=== PATIENT | male | born 1955 | race Caucasian/White ===

== ENCOUNTER 2021-07-31 17:50 | Inpatient (IN) | payer MEDICARE, OTHER, SELFPAY ==
--- NOTE | ~2021-07-31 | XR_ITS ---
EXAMINATION: CHEST 2 VIEWS CLINICAL INFORMATION: Stroke protocol . COMPARISON: No recent pertinent prior studies are available for comparison. TECHNIQUE: PA and lateral views of the chest obtained. FINDINGS: The lungs are well expanded. Minimal left basilar markings likely due to atelectasis but no superimposed focal infiltrate, effusion, edema, or pneumothorax. Cardiac and mediastinal silhouettes are within normal limits for technique. No acute bony abnormality seen XR/XR chest 2V IMPRESSION: Minimal left basilar markings more likely due to atelectasis
--- NOTE | ~2021-07-31 | US_ITS ---
EXAMINATION: US EXTRACRANIAL CAROTID DUPLEX, BILATERAL CLINICAL INFORMATION: CVA/left-sided weakness COMPARISON: Previous head CT 07/31/2021 TECHNIQUE: Real-time ultrasound and Doppler techniques (integrating B-mode 2-D vascular images, Doppler spectral analysis and color-flow Doppler imaging) were utilized to interrogate the extracranial carotid arteries, the vertebral arteries and proximal subclavian arteries bilaterally. The degree of stenosis is determined by criteria similar to NASCET. FINDINGS: Right Side: 1. There is mild atherosclerotic plaque seen in the bifurcation/proximal ICA region. 2. The common carotid artery PSV proximally is 79 cm/s and distally 73 cm/s. 3. The proximal internal carotid artery velocities are 59 cm/s systolic and 26 cm/s diastolic. 4. The proximal external carotid artery PSV is 133 cm/s. 5. The vertebral artery shows antegrade flow. 6. The subclavian artery waveforms are normal. Left Side: 1. There is mild atherosclerotic plaque seen in the bifurcation/proximal ICA region. 2. The common carotid artery PSV proximally is 75 cm/s and distally 64 cm/s. 3. The proximal internal carotid artery velocities are 49 cm/s systolic and 19 cm/s diastolic. 4. The proximal external carotid artery PSV is 99 cm/s. 5. The vertebral artery shows flow antegrade flow. 6. The subclavian artery waveforms are normal. There is an arrhythmia. US/US carotid duplex BI IMPRESSION: 1. RIGHT: Minimal atherosclerotic plaque. 0-49% right ICA stenosis. 2. LEFT: Minimal atherosclerotic plaque. 0-49% left ICA stenosis.
--- NOTE | ~2021-07-31 | CT_ITS ---
EXAMINATION: CT HEAD WITHOUT CONTRAST CLINICAL INFORMATION: Left-sided weakness for 12 days COMPARISON: None TECHNIQUE: Contiguous axial imaging was performed from the skull base to vertex without intravenous administration of contrast. This CT examination was performed using dose optimization techniques as appropriate, variously including the following: *Automated exposure control *Adjustment of mA and/or kV according to patient size (this includes techniques or standardized protocols for targeted exams where dose is matched to indication/reason for exam; i.e. extremities or head) *Use of iterative reconstruction technique DLP: 711 mGy-cm FINDINGS: Atherosclerotic calcification of the cavernous carotid arteries. Old lacunar infarcts in the gangliocapsular regions. Also, there appears to be a small, subtle 0.4 cm focus of calcification of the right basal ganglia. The hypoattenuation within white matter of each frontal lobe is compatible with sequela of chronic microangiopathy. Surgical changes from prior right frontal craniotomy, and there is encephalomalacia with postoperative lack of brain tissue of the inferior right frontal lobe deep to the craniotomy site. No acute intracranial hemorrhage is identified. There is no loss of jimenez-white matter differentiation to suggest an acute major vascular territory infarction. Mild volume loss of brain parenchyma with commensurate prominence of ventricles and sulci; no hydrocephalus. The brainstem and cerebellum are unremarkable. The right mastoid air cells are normal. Some of the left mastoid air cells are opacified. The visualized paranasal sinuses are well aerated and without air-fluid levels. The orbits, globes and temporomandibular joints are unremarkable. CT/CT head/brain wo con IMPRESSION: * No evidence of an acute major vascular territory infarction. * There is encephalomalacia of the inferior right frontal lobe deep to the site of prior craniotomy. * Old lacunar infarcts in the gangliocapsular regions, and chronic small vessel ischemic changes of the supratentorial white matter.
--- NOTE | ~2021-07-31 | MR_ITS ---
MR BRAIN WITHOUT AND WITH CONTRAST CLINICAL INFORMATION: CVA. COMPARISON: Head CT 07/31/2021. TECHNIQUE: Multiplanar, multisequence MRI of the brain was obtained before and after the intravenous administration of 10 mL Gadavist. FINDINGS: There is a small acute infarct within the right aviles radiata on image 21 of series 3. No mass effect and no hemorrhagic transformation. There is no pathologic intracranial enhancement. Redemonstrated chronic postoperative changes following right orbitofrontal craniotomy. There is a resection cavity within the inferior right frontal lobe with surrounding nonenhancing T2 signal changes that are nonspecific. There is also chronic hemosiderin staining along the periphery of the resection cavity and there are punctate chronic microhemorrhages within the cerebral hemispheres bilaterally. There is global cerebral volume loss and there are nonspecific confluent T2 signal changes within the bifrontal white matter. A few small foci of bandlike enhancement within the right basal ganglia, likely normal vasculature. There is no hydrocephalus, extra-axial surface collection, or herniation. The major flow voids at the skull base are preserved. There is no acute infarct on diffusion-weighted imaging. There is no intracranial hemorrhage on the gradient recalled echo acquisition. The midline structures are normal. The cerebellar tonsils are normally positioned. The cerebellum and brainstem are normal. The craniocervical junction is normal. Osseous marrow signal intensity is homogenous. The visualized soft tissues are unremarkable. There is a moderate sized left mastoid effusion. MR/MR head/brain wo/w con IMPRESSION: - There is a small acute infarct within the right aviles radiata on image 21 of series 3. No mass effect and no hemorrhagic transformation. - Redemonstrated chronic postoperative changes following right orbitofrontal craniotomy. There is a resection cavity within the inferior right frontal lobe with surrounding nonenhancing T2 signal changes that are nonspecific. There is also chronic hemosiderin staining along the periphery of the resection cavity and there are punctate chronic microhemorrhages within the cerebral hemispheres bilaterally. - A few small foci of bandlike enhancement within the right basal ganglia, likely normal vasculature. - Nonspecific and nonenhancing confluent T2 signal changes within the bifrontal white matter. - There is a moderate sized left mastoid effusion.
[2021-07-31 18:13] VITALS: BP 157/88; PULSE 62; RESP 18; TEMP 37.2; O2SAT 96; BMI 42.3
--- NOTE | 2021-07-31 18:33 | ECG_ITS ---
Test Reason : WEAKNESS Blood Pressure : / mmHG Vent. Rate : 060 BPM Atrial Rate : 202 BPM P-R Int : 000 ms QRS Dur : 078 ms QT Int : 416 ms P-R-T Axes : 000 007 041 degrees QTc Int : 416 ms Atrial fibrillation Abnormal ECG No previous ECGs available Referred By: Hoang Cuevas Electronically Signed By:DAVID MOISE
--- NOTE | 2021-07-31 18:35 | ED.GENADULT ---
HPI - General Adult General Chief complaint: General Medical Stated complaint: L SIDED WEAKNESS X'S WEEKS Time Seen by Provider: 07/31/21 18:20 Source: patient and family History of Present Illness HPI narrative: Patient with history of dementia, AFib on Eliquis, presents with at least 10 days worth of left-sided weakness. Left facial droop, left arm weakness, left leg weakness with difficulty ambulating. No recent changes in medications. No recent traumas or falls. Patient denies pain. Apparently they tried to get in to Urgent Care to be seen but were unable. Is a history of a stroke in the past which resulted in difficulty speaking which resolved. He never had focal weakness like this before. He states he may have missed a dose or 2 of his Eliquis recently by accident but no intentional changes in medication. He denies headache. No changes in vision. His states that his speech is difficult to understand. Occasional difficulty finding words. Related Data Allergies Allergy/AdvReac Type Severity Reaction Status Date / Time No Known Allergies Allergy Unverified 07/31/21 18:32 Review of Systems Constitutional: Comments: No fevers or chills Eyes: Comments: No vision changes Cardiovascular: Comments: No chest pain Respiratory: Comments: No difficulty breathing Gastrointestinal: Comments: No nausea vomiting diarrhea Musculoskeletal: Comments: Some chronic knee pain but no of acute or new pain Neurologic: Comments: Left facial droop, dysarthria, left arm weakness, left leg weakness PMFSH Social History Social History Advance Directives: No Advance Directives Information Provided: No Physical Exam Vital Signs: Vital Signs: Last Vital Signs Temp 99.0 F 07/31/21 18:13 Pulse 62 07/31/21 18:13 Resp 18 07/31/21 18:13 BP 157/88 H 07/31/21 18:13 Pulse Ox 96 07/31/21 18:13 Body Mass Index 42.3 Const: Other: No acute distress. Alert and oriented HENMT: Other: Normocephalic atraumatic Eyes: Other: Extraocular muscles intact Resp: Other: Clear and equal bilaterally Cardio: Other: Irregularly irregular with a rate in the 50s. No obvious murmurs rubs or gallops GI: Other: Nontender Skin: Other: Warm pink and dry Neuro: Other: Left facial droop Left arm weakness with a pronator drift. Left knit tubing dyer strength decreased 3/5. Left leg weakness. Able to lift against gravity but not maintain NIH Stroke Scale Internal: Initial- Upon Arrival Time: 18:39 Level of Consciousness: Alert Level of Consciousness Questions: Answers both questions correctly Level of Consciousness Commands: Performs both tasks correctly Best Gaze: Normal Visual: No visual loss Facial Palsy: Partial paralysis Motor Arm (Right): No drift Motor Arm (Left): Drift Motor Leg (Right): No drift Motor Leg (Left): Drift Limb Ataxia: Absent Sensory: Normal Best Language: No aphasia Dysarthia: Mild to moderate dysarthria Extinction and Inattention: No abnormality Score: 5 Course Course Course Narrative: Patient with probable stroke. Intracranial mass possible as he has a remote history of a metastatic brain lesion with radiation treatment. Intracranial hemorrhage is also possible as he is on Eliquis for atrial fibrillation. NIH score is 5. He is not a candidate for thrombolysis or endovascular given time line of at least 11 days. Other contraindication for thrombolysis is Eliquis Medical Decision Making Lab Data Result diagrams: 07/31/21 20:10 07/31/21 20:10 Labs: Lab Results 07/31/21 07/31/21 07/31/21 Range/Units 19:42 20:10 20:10 WBC 9.3 (4.8-10.8) X10*3/uL RBC 4.81 (4.60-5.80) X10*6/uL Hgb 15.4 (14.0-18.0) g/dl Hct 41.8 L (42-52) % MCV 86.9 (80-98) fL MCH 32.0 (27.0-33.0) pg MCHC 36.8 H (31.0-36.0) g/dl RDW 11.9 (11.0-16.0) % Plt Count 237 (160-400) X10*3/uL MPV 8.6 L (9.4-12.4) fL Immature Gran % (Auto) 0.6 H (0.0-0.4) % Neut % (Auto) 66.1 (45-73) % Lymph % (Auto) 23.3 (20-40) % [place] % (Auto) 9.1 (2-11) % Eos % (Auto) 0.6 (0-4) % Baso % (Auto) 0.3 (0-2) % Lymph # (Auto) 2.2 (1.2-4.9) X10*3/uL [place] # (Auto) 0.8 (0.1-1.2) X10*3/uL Eos # (Auto) 0.1 (0.0-0.4) X10*3/uL Baso # (Auto) 0.0 (0.0-0.2) X10*3/uL Abs Immat Gran (auto) 0.06 H (0.00-0.03) X10*3/uL Absolute Neuts (auto) 6.1 (2.0-8.3) X10*3/uL Absolute Nucleated RBC 0.000 (0.0-0.012) X10*3/uL Nucleated RBC % (auto) 0.0 (0.0-0.2) /100WBC PT (9.9-13.0) SEC INR (0.9-1.1) Sodium 133 L (135-145) mmol/L Potassium 4.0 (3.3-5.1) mmol/L Chloride 97 (96-108) mmol/L Carbon Dioxide 26 (22-29) mmol/L Anion Gap 14 (12-20) BUN 12 (9-16) mg/dL Creatinine 0.85 (0.5-1.4) mg/dL Estim Creat Clear Calc 105.7 Estimated GFR > 60 Random Glucose 106 (60-115) mg/dL Calcium 9.5 (8.4-10.2) mg/dL Total Bilirubin 1.0 (0.0-1.0) mg/dL AST 16 (5-37) U/L ALT 19 (0-40) U/L Alkaline Phosphatase 86 (39-117) U/L Total Protein 7.4 (6.5-8.0) g/dL Albumin 4.6 (3.5-5.0) g/dL COVID-19 (SILVINO) Negative (Negative) COVID-19 Clin Com See Note 07/31/21 Range/Units 20:10 WBC (4.8-10.8) X10*3/uL RBC (4.60-5.80) X10*6/uL Hgb (14.0-18.0) g/dl Hct (42-52) % MCV (80-98) fL MCH (27.0-33.0) pg MCHC (31.0-36.0) g/dl RDW (11.0-16.0) % Plt Count (160-400) X10*3/uL MPV (9.4-12.4) fL Immature Gran % (Auto) (0.0-0.4) % Neut % (Auto) (45-73) % Lymph % (Auto) (20-40) % [place] % (Auto) (2-11) % Eos % (Auto) (0-4) % Baso % (Auto) (0-2) % Lymph # (Auto) (1.2-4.9) X10*3/uL [place] # (Auto) (0.1-1.2) X10*3/uL Eos # (Auto) (0.0-0.4) X10*3/uL Baso # (Auto) (0.0-0.2) X10*3/uL Abs Immat Gran (auto) (0.00-0.03) X10*3/uL Absolute Neuts (auto) (2.0-8.3) X10*3/uL Absolute Nucleated RBC (0.0-0.012) X10*3/uL Nucleated RBC % (auto) (0.0-0.2) /100WBC PT 13.4 H (9.9-13.0) SEC INR 1.2 H (0.9-1.1) Sodium (135-145) mmol/L Potassium (3.3-5.1) mmol/L Chloride (96-108) mmol/L Carbon Dioxide (22-29) mmol/L Anion Gap (12-20) BUN (9-16) mg/dL Creatinine (0.5-1.4) mg/dL Estim Creat Clear Calc Estimated GFR Random Glucose (60-115) mg/dL Calcium (8.4-10.2) mg/dL Total Bilirubin (0.0-1.0) mg/dL AST (5-37) U/L ALT (0-40) U/L Alkaline Phosphatase (39-117) U/L Total Protein (6.5-8.0) g/dL Albumin (3.5-5.0) g/dL COVID-19 (SILVINO) (Negative) COVID-19 Clin Com Critical Care Time Critical Care Time Critical Care Time: Yes Total Critical Care Time: 60 Attestation: Stroke with thrombolytics consideration no Discharge Plan Discharge Patient Disposition: Admitted As Inpatient
[2021-07-31 20:00] VITALS: PULSE 84; RESP 18; O2SAT 100
[2021-07-31 20:15] LABS: Basophils Percent Auto 0.3 % (0-2); Eosinophils Absolute Auto 0.1 X10*3/uL (0.0-0.4); Eosinophils Percent Auto 0.6 % (0-4); Hematocrit 41.8 % (42-52); Hemoglobin 15.4 g/dl (14.0-18.0); Imm Gran Abs Auto 0.06 X10*3/uL (0.00-0.03); Imm Gran Pct Auto 0.6 % (0.0-0.4); Lymphocytes Absolute Auto 2.2 X10*3/uL (1.2-4.9); Lymphocytes Percent Auto 23.3 % (20-40); MANUAL DIFF FLAG NO; Mean Corpuscular HGB Conc 36.8 g/dl (31.0-36.0); Mean Corpuscular Volume 86.9 fL (80-98); Mean Platelet Volume 8.6 fL (9.4-12.4); Monocytes Absolute Auto 0.8 X10*3/uL (0.1-1.2); Monocytes Percent Auto 9.1 % (2-11); Neutrophils Absolute Auto 6.1 X10*3/uL (2.0-8.3); Neutrophils Percent Auto 66.1 % (45-73); Platelet Count 237 X10*3/uL (160-400); Red Blood Count 4.81 X10*6/uL (4.60-5.80); Red Cell Distribution Width 11.9 % (11.0-16.0); White Blood Count 9.3 X10*3/uL (4.8-10.8)
[2021-07-31 20:19] LABS: COVID-19 Test Negative (Negative)
[2021-07-31 20:21] LABS: INTERNATIONAL NORM RATIO 1.2 (0.9-1.1); Prothrombin Time 13.4 SEC (9.9-13.0)
[2021-07-31 20:34] LABS: Alanine Aminotransferase 19 U/L (0-40); Albumin Level 4.6 g/dL (3.5-5.0); Alkaline Phosphatase 86 U/L (39-117); Anion Gap 14 (12-20); Aspartate Amino Transferase 16 U/L (5-37); Blood Urea Nitrogen 12 mg/dL (9-16); Calcium 9.5 mg/dL (8.4-10.2); Carbon Dioxide 26 mmol/L (22-29); Chloride 97 mmol/L (96-108); Creatinine Clr Calc Pharmacy 105.7; Estimated Glomerular Filt Rate > 60; Glucose Random 106 mg/dL (60-115); Sodium 133 mmol/L (135-145); Total Protein 7.4 g/dL (6.5-8.0)
--- NOTE | 2021-07-31 22:17 | PM.IMHP ---
History of Present Illness Date of Service: 07/31/21 Chief Complaint: left arm weakness 66-year-old male with past medical history of HTN, AFib on Eliquis, hyperlipidemia, hypothyroidism who presents the hospital with complaints of left-sided arm weakness. Patient reports that this occurred about a week ago, his also noticed slurred speech and droopiness of the face, when asked the patient he denied left leg weakness but apparently his reported left leg weakness with difficulty ambulating. Patient denies any chest pain, no shortness of breath, no cough, he denies any headache, no change in vision, no abdominal pain nausea vomiting, diarrhea constipation, no urinary symptoms and no lower extremity edema. All other review of systems negative except as mentioned On arrival to the ED patient hemodynamically stable with no significant abnormal vitals Labs are significant for WBC count of 9.3, PT of 13.5, INR of 1.2, sodium of 133, otherwise unremarkable. Of an acute major vascular territory infarction, there is encephalomalacia of the inferior right frontal lobe deep to the site of prior craniotomy, old lacunar infarcts in the gangliacapsular region and chronic small vessel ischemic changes of the supratentorial white matter Patient will be admitted for further evaluation Review of Systems Review of Systems: Yes all other systems are reviewed and are negative [facility] Medical History (Updated 08/01/21 @ 06:49 by Vin Begum MD) Afib History of stroke Hyperlipidemia Hypertension Hypothyroidism Family History Father Hypertension Pertinent family history: History of hypertension father Surgical History History of craniotomy Social History Household Members: Family Housing: House Do you presently have visiting nurse or other home services: No Unable to assess alcohol history related to: Unknown Alcohol intake: never Patient Tobacco Use Status: Tobacco use Unknown Smoked in Last 30 Days: No Use of substances other than those prescribed or required for medical reasons: Unknown Advance Directives: No Advance Directives Information Provided: No Do you have thoughts of harming others: None Do you have a plan to hurt others: No Plan Recently lost weight without trying: Unsure Poor oral hygiene: No Meds Allergies Allergy/AdvReac Type Severity Reaction Status Date / Time No Known Allergies Allergy Unverified 07/31/21 18:32 Home Medications Medication Instructions Recorded Confirmed Last Taken Type amlodipine 5 mg tablet 1 tab PO DAILY 07/31/21 07/31/21 Unknown History apixaban 5 mg tablet (Eliquis) 1 tab PO BID 07/31/21 07/31/21 Unknown History atorvastatin 20 mg tablet 1 tab PO DAILY 07/31/21 07/31/21 Unknown History desonide 0.05 % topical cream 1 appl TOPICAL DAILY 07/31/21 07/31/21 Unknown History donepezil 5 mg tablet 1 tab PO DAILY 07/31/21 07/31/21 Unknown History hydroxyzine HCl 25 mg tablet 2 tab PO BEDTIME PRN 07/31/21 07/31/21 Unknown History ketoconazole 2 % topical cream 1 appl TOPICAL BID 07/31/21 07/31/21 Unknown History levothyroxine 100 mcg tablet 1 tab PO DAILY 07/31/21 07/31/21 Unknown History travoprost 0.004 % eye drops 1 drp OPHTHALMIC (EYE) QPM 07/31/21 07/31/21 Unknown History Physical Exam Vital Signs and Narrative: Vital Signs: Last Vital Signs Temp 99.0 F 07/31/21 18:13 Pulse 84 07/31/21 20:00 Resp 18 07/31/21 20:00 BP 157/88 H 07/31/21 18:13 Pulse Ox 100 07/31/21 20:00 Body Mass Index 42.3 Const: General: cooperative and no acute distress Orientation/consciousness: patient oriented x3 Eyes: General: appearance normal, both eyes and all related structures Pupils: Equal, round and reactive pupils present Resp: Effort & Inspection: normal respiratory effort Auscultation: clear to auscultation bilaterally Cardio: Rate: regular rate Rhythm: regular rhythm GI: Palpation (GI): Soft to palpation Auscultation: normal bowel sounds Skin: General skin exam: no rashes or lesions noted Neuro: Other: There is 4/5 strength in the left upper left extremity, 5/5 strength in all other extremities, no slurred speech noted, no facial droop, no neurological deficits otherwise General: patient oriented x3 Cranial nerves: Yes Equal, round and reactive pupils present Cognition (Neuro): normal cognition Extrem: General: Yes normal to inspection and Yes no pedal edema Results Labs CBC and Chem 7: 07/31/21 20:10 07/31/21 20:10 Labs: Laboratory Results - last 24 hr 07/31/21 07/31/21 07/31/21 19:42 20:10 20:10 MCV 86.9 MCH 32.0 MCHC 36.8 H RDW 11.9 Plt Count 237 MPV 8.6 L Immature Gran % (Auto) 0.6 H Neut % (Auto) 66.1 Lymph % (Auto) 23.3 [place] % (Auto) 9.1 Eos % (Auto) 0.6 Baso % (Auto) 0.3 Lymph # (Auto) 2.2 [place] # (Auto) 0.8 Eos # (Auto) 0.1 Baso # (Auto) 0.0 Abs Immat Gran (auto) 0.06 H Absolute Neuts (auto) 6.1 Absolute Nucleated RBC 0.000 Nucleated RBC % (auto) 0.0 PT INR Anion Gap 14 Estim Creat Clear Calc 105.7 Estimated GFR > 60 Random Glucose 106 Calcium 9.5 Total Bilirubin 1.0 AST 16 ALT 19 Alkaline Phosphatase 86 Total Protein 7.4 Albumin 4.6 COVID-19 (SILVINO) Negative COVID-19 Clin Com See Note 07/31/21 20:10 MCV MCH MCHC RDW Plt Count MPV Immature Gran % (Auto) Neut % (Auto) Lymph % (Auto) [place] % (Auto) Eos % (Auto) Baso % (Auto) Lymph # (Auto) [place] # (Auto) Eos # (Auto) Baso # (Auto) Abs Immat Gran (auto) Absolute Neuts (auto) Absolute Nucleated RBC Nucleated RBC % (auto) PT 13.4 H INR 1.2 H Anion Gap Estim Creat Clear Calc Estimated GFR Random Glucose Calcium Total Bilirubin AST ALT Alkaline Phosphatase Total Protein Albumin COVID-19 (SILVINO) COVID-19 Clin Com ECG Interpretation: atrial fibrillation Imaging Radiologist's Impressions: Impressions Head CT 07/31/21 18:32 IMPRESSION: * No evidence of an acute major vascular territory infarction. * There is encephalomalacia of the inferior right frontal lobe deep to the site of prior craniotomy. * Old lacunar infarcts in the gangliocapsular regions, and chronic small vessel ischemic changes of the supratentorial white matter. Chest X-Ray 07/31/21 18:33 IMPRESSION: Minimal left basilar markings more likely due to atelectasis Assessment and Plan (1) CVA (cerebral vascular accident): Status: Acute 66-year-old male with past medical history of hypertension, hypothyroidism, hyperlipidemia presents to the hospital with left-sided weakness being admitted for evaluation of CVA # CVA - has no evidence of acute/subacute stroke on CT of the head - there is evidence of old infarct as mentioned above - patient already on high dose of statin, as well as Eliquis - will consult neurology - will hold off on MRI until Neurology evaluates patient # hypertension - stable - continue home medications # hyperlipidemia - continue statin # AFib - continue liquids # hypothyroidism - continue levothyroxine DVT prophylaxis: Eliquis Quality Stroke Does the patient have a stroke diagnosis?: No VTE Prior VTE?: No VTE Risk Level:: Medical - moderate - high VTE Device Contraindication: Treatment Not Indicated VTE Drug Contraindication: N/A - Med Ordered
[2021-07-31 22:23] VITALS: BP 153/90; PULSE 64; RESP 18; TEMP 37; O2SAT 100
--- NOTE | 2021-07-31 22:56 | PC.NURSE ---
Hospitalist aware of npo status.
[2021-08-01] VITALS (11 sets, daily range): BP systolic 120–165; BP diastolic 72–95; PULSE 55–90; RESP 16–20; TEMP 36–37.3; O2SAT 92–96
[2021-08-01 07:14] LABS: MANUAL DIFF FLAG NO
[2021-08-01 07:19] LABS: Basophils Percent Auto 0.3 % (0-2); Eosinophils Absolute Auto 0.1 X10*3/uL (0.0-0.4); Eosinophils Percent Auto 0.7 % (0-4); Hematocrit 43.3 % (42-52); Hemoglobin 15.6 g/dl (14.0-18.0); Imm Gran Abs Auto 0.07 X10*3/uL (0.00-0.03); Imm Gran Pct Auto 0.8 % (0.0-0.4); Lymphocytes Percent Auto 22.7 % (20-40); Mean Corpuscular Hemoglobin 31.4 pg (27.0-33.0); Mean Corpuscular Volume 87.1 fL (80-98); Mean Platelet Volume 8.7 fL (9.4-12.4); Monocytes Absolute Auto 0.8 X10*3/uL (0.1-1.2); Monocytes Percent Auto 8.8 % (2-11); Neutrophils Absolute Auto 5.8 X10*3/uL (2.0-8.3); Neutrophils Percent Auto 66.7 % (45-73); Platelet Count 252 X10*3/uL (160-400); Red Blood Count 4.97 X10*6/uL (4.60-5.80); Red Cell Distribution Width 11.9 % (11.0-16.0); White Blood Count 8.7 X10*3/uL (4.8-10.8)
[2021-08-01 07:45] LABS: Anion Gap 14 (12-20); Blood Urea Nitrogen 12 mg/dL (9-16); Calcium 9.1 mg/dL (8.4-10.2); Carbon Dioxide 26 mmol/L (22-29); Chloride 95 mmol/L (96-108); Cholesterol 151 mg/dL; Creatinine Clr Calc Pharmacy 108.2; Estimated Glomerular Filt Rate > 60; Glucose Random 99 mg/dL (60-115); HDL Cholesterol 45 mg/dL; LDL Cholesterol Calculated 91 mg/dl; Potassium 4.1 mmol/L (3.3-5.1); Sodium 131 mmol/L (135-145); Triglycerides 75 mg/dL
--- NOTE | 2021-08-01 12:30 | MHC.SL.SWA ---
Speech Pathologist Impression: Risk of Aspiration Oralpharyngeal Dysphagia Risk of Aspiration Due to: Neurological Condition Dysphasia Diet Status: Upgrade Liquid Consistency and Strategies for Safe Swallow: Liquid Intake Recommendation: Honey Thick Liquid Intake Strategies: Small Sips No Straws Solid Food Consistency: Dietary Recommendations: Regular Additional Modifications to Solid Foods: Recommend REGULAR solids and HONEY THICK liquids with pills WHOLE in PUREE. Patient is able to feed himself, but is recommended assistance with tray set up and supervision to ensure tolerance and aspiration precautions. Recommend strict aspiration precautions. Oral Medication Intake: Whole with Puree Compensatory Strategies and Precautions to be Taken for Safe Swallow: Sitting Upright (90 deg) No Straw Liquids from Cup Liquids from Spoon Small Bites and Sips Alternate Liquids/Solids Rate of Ingestion Change Oral Check Avoid Specific Foods Supervision While Eating and Drinking for Safe Swallow: Total Supervision (1:1) Foods to Avoid: Avoid tough and sticky foods Swallowing Recommended Treatments: Compens. Strategy Educat. Recommendation for Speech: Inpatient Speech Therapy Comment: [employer] will continue to follow. Supervisor Cd Area Clinican/Clinical Fellow: No Supervisory Statement: I have reviewed and agree with the student/clinical fellow's documentation: N/A Speech Language Pathologist: Leatha Banks M.A., CCC-[employer]
[2021-08-01] MEDS: amLODIPine Besylate 5 MG TABLET PO (12:40)
[2021-08-01] MEDS: Donepezil HCl 5 MG TABLET PO (12:40)
[2021-08-01] MEDS: Triamcinolone Acet 0.025 % Cream 15 GM TUBE 1 APPL TOPICAL (12:40)
[2021-08-01] MEDS: Atorvastatin Calcium 20 MG TABLET PO (12:40)
[2021-08-01] MEDS: Apixaban 5 MG TABLET PO ×2 (12:40→20:21)
[2021-08-01] MEDS: Clotrimazole 1 % Cream 15 GM TUBE 1 APPL TOPICAL ×2 (12:40→20:21)
--- NOTE | 2021-08-01 13:12 | HO.PM.IMPN ---
Subjective Subjective Date of Service: 08/01/21 Interval History: Follow-up on left upper extremity weakness of 1 week duration, also noted to have facial droop and left lower extremity weakness by , patient awake alert this morning complaining of persistent left Upper extremity weakness, denies lower extremity weakness, denies speech impairment or unsteady gait. Review of Systems General no headache, no dizziness no fever chills. CVS no chest pain, no palpitation. Respiratory no cough ,no sob. Gastrointestinal no nausea no vomiting, no abdominal pain Review of Systems: Yes all other systems are reviewed and are negative Physical Exam Vital Signs: Vital Signs: Last Vital Signs Temp 96.8 F 08/01/21 11:14 Pulse 80 08/01/21 12:40 Resp 20 08/01/21 11:14 BP 143/83 H 08/01/21 12:40 Pulse Ox 93 08/01/21 11:14 Body Mass Index 42.3 General alert oriented x3, no acute distress. Neck supple no JVD. CVS irregular rate rhythm, Respiratory lungs clear to auscultation, no respiratory distress, no wheeze, no rhonchi. Gastrointestinal abdomen soft, nontender, bowel sounds audible, no guarding , no rigidity. Extremities no edema. Neuro left upper extremity weakness, mild left facial droop, normal strength bilateral lower extremity Skin no rash Objective Data Active Medications Acetaminophen (Acetaminophen 325 Mg Tablet) 650 mg PO Q6H PRN PRN Reason: Pain, Mild (Pain Scale 1-3) Amlodipine Besylate (Amlodipine Besylate 5 Mg Tablet) 5 mg PO DAILY [facility]; Protocol Last Admin: 08/01/21 12:40 Dose: 5 mg Documented by: IRLANDA Apixaban (Apixaban 5 Mg Tablet) 5 mg PO BID [facility] Last Admin: 08/01/21 12:40 Dose: 5 mg Documented by: IRLANDA Atorvastatin Calcium (Atorvastatin Calcium 20 Mg Tablet) 20 mg PO DAILY [facility] Last Admin: 08/01/21 12:40 Dose: 20 mg Documented by: IRLANDA Clotrimazole (Clotrimazole 1 % Cream 15 Gm Tube) 1 appl TOPICAL BID [facility] Last Admin: 08/01/21 12:40 Dose: 1 appl Documented by: IRLANDA Docusate Sodium (Docusate Sodium 100 Mg Capsule) 100 mg PO DAILY PRN PRN Reason: Constipation Donepezil HCl (Donepezil Hcl 5 Mg Tablet) 5 mg PO DAILY [facility] Last Admin: 08/01/21 12:40 Dose: 5 mg Documented by: IRLANDA Hydroxyzine HCl (Hydroxyzine Hcl 50 Mg Tablet) 50 mg PO BEDTIME PRN PRN Reason: insomnia Latanoprost (Latanoprost 0.005 % Ophth Lulu 2.5 Ml Drops) 1 drop EYE-BOTH BEDTIME [facility] Levothyroxine Sodium (Levothyroxine Sodium 100 Mcg Tablet) 100 mcg PO DAILY@0600 [facility] Last Admin: 08/01/21 06:19 Dose: Not Given Documented by: NICKI Non-Admin Reason: NPO Ondansetron HCl (Ondansetron Hcl 4 Mg/2 Ml Vial) 4 mg IVPUSH Q8H PRN PRN Reason: Nausea and Vomiting Triamcinolone Acetonide (Triamcinolone Acet 0.025 % Cream 15 Gm Tube) 1 appl TOPICAL DAILY [facility] Last Admin: 08/01/21 12:40 Dose: 1 appl Documented by: IRLANDA Labs CBC & Chem 7: 08/01/21 07:02 08/01/21 07:02 Labs: Laboratory Results - last 24 hr 07/31/21 07/31/21 07/31/21 19:42 20:10 20:10 MCV 86.9 MCH 32.0 MCHC 36.8 H RDW 11.9 Plt Count 237 MPV 8.6 L Immature Gran % (Auto) 0.6 H Neut % (Auto) 66.1 Lymph % (Auto) 23.3 [place] % (Auto) 9.1 Eos % (Auto) 0.6 Baso % (Auto) 0.3 Lymph # (Auto) 2.2 [place] # (Auto) 0.8 Eos # (Auto) 0.1 Baso # (Auto) 0.0 Abs Immat Gran (auto) 0.06 H Absolute Neuts (auto) 6.1 Absolute Nucleated RBC 0.000 Nucleated RBC % (auto) 0.0 PT INR Anion Gap 14 Estim Creat Clear Calc 105.7 Estimated GFR > 60 Random Glucose 106 Calcium 9.5 Total Bilirubin 1.0 AST 16 ALT 19 Alkaline Phosphatase 86 Total Protein 7.4 Albumin 4.6 Triglycerides Cholesterol LDL Cholesterol, Calc HDL Cholesterol COVID-19 ([facility]) Negative COVID-19 Clin Com See Note 07/31/21 08/01/21 08/01/21 20:10 07:02 07:02 MCV 87.1 MCH 31.4 MCHC 36.0 RDW 11.9 Plt Count 252 MPV 8.7 L Immature Gran % (Auto) 0.8 H Neut % (Auto) 66.7 Lymph % (Auto) 22.7 [place] % (Auto) 8.8 Eos % (Auto) 0.7 Baso % (Auto) 0.3 Lymph # (Auto) 2.0 [place] # (Auto) 0.8 Eos # (Auto) 0.1 Baso # (Auto) 0.0 Abs Immat Gran (auto) 0.07 H Absolute Neuts (auto) 5.8 Absolute Nucleated RBC 0.000 Nucleated RBC % (auto) 0.0 PT 13.4 H INR 1.2 H Anion Gap 14 Estim Creat Clear Calc 108.2 Estimated GFR > 60 Random Glucose 99 Calcium 9.1 Total Bilirubin AST ALT Alkaline Phosphatase Total Protein Albumin Triglycerides 75 Cholesterol 151 LDL Cholesterol, Calc 91 HDL Cholesterol 45 COVID-19 ([facility]) COVID-19 Clin Com Assessment and Plan (1) CVA (cerebral vascular accident): Status: Acute Assessment and Plan: 66-year-old male with past medical history of hypertension, hypothyroidism, hyperlipidemia presents to the hospital with left-sided weakness being admitted for evaluation of CVA # left sided weakness ? CVA - persistent left upper extremity weakness x 1week, left facial droop, CT head showed no acute CVA, but showed encephalomalacia of inferior right frontal lobe deep to site of prior craniotomy and showed old lacunar infarction and chronic small-vessel ischemic changes , patient did not meet criteria for tPA Reviewed labs it showed LDL 91, total cholesterol 151 Continue statin, and Eliquis Await Neurology input will likely need MRI study Patient seen by speech therapy they recommend regular solids and honey thing liquids with pills whole in puree and strict aspiration precautions Will obtain PT/OT consult # hypertension - stable - continue Norvasc 5 mg daily # hyperlipidemia - continue statin # AFib - continue liquids, stable ventricular rate # hypothyroidism - continue levothyroxine, check TSH # morbid obesity will recommend low-calorie diet, obesity likely contributing to hypertension hyperlipidemia and stroke. # mild hyponatremia sodium 131, not on hydrochlorothiazide, follow labs if remains low will check serum osmolality DVT prophylaxis:? Eliquis Quality Stroke Does the patient have a stroke diagnosis?: No VTE Prior VTE?: No VTE Risk Level:: Medical - moderate - high VTE Device Contraindication: Treatment Not Indicated VTE Drug Contraindication: N/A - Med Ordered
--- NOTE | 2021-08-01 13:54 | MHC.CM.PN ---
Lives with , owns 4 point cane. indicates over last two weeks patient's functional health has declined; hospital W/U revealed stroke. Their house has bedroom and full bathroom on second floor, so 2 weeks ago when the noticeable changes began, she [facility] since he has not been able to get up the stairs. Additionally she has put an air mattress on the first floor since he cannot get up to the second floor to their bedroom. Prior to this 2 week change, he was fully independent; with ADLs, driving, etc. Discussion held regarding PT eval prior to D/C destination determinations; patient and are very interested in acute rehab for stroke rehabilitation. If PT eval reveals that inptient rehab is advisable, their choices are as follows in this order: (1) [facility] in [place] (2) [facility] (3) [facility]. Patient pending MRI for DX confirmation. CM to follow.
--- NOTE | 2021-08-01 14:06 | PM.NEUROCN ---
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 He also had a minor stroke in 2012 with speech problems from which she did totally recover. He was found to have atrial fibrillation 3 years ago and has been on Eliquis b.i.d.. He now presents with 10 day history of left-sided weakness, left facial droop and increased slurring. At the time of onset he was having lot of bilateral knee pain and that was being addressed by injections into the knee and therefore attention was then paid to the fact that his face is drooped and his speech had become more slurred till he started dropping things from the left hand which was approximately 10 days ago. Review of Systems Review of Systems: General no headache, no dizziness no fever chills. CVS no chest pain, no palpitation. Respiratory no cough ,no sob. Gastrointestinal no nausea no vomiting, no abdominal pain Yes all other systems are reviewed and are negative PMF Past Medical History Medical History (Updated 08/01/21 @ 06:49 by Vin Begum MD) Afib History of stroke Hyperlipidemia Hypertension Hypothyroidism Family History Family History Father Hypertension Pertinent family history: History of hypertension father Surgical History Surgical History History of craniotomy Social History Social History Household Members: Family Housing: House Do you presently have visiting nurse or other home services: No Unable to assess alcohol history related to: Unknown Alcohol intake: never Patient Tobacco Use Status: Tobacco use Unknown Smoked in Last 30 Days: No Use of substances other than those prescribed or required for medical reasons: Unknown Currently Displaying Signs/Symptoms of Drug Intoxication Withdrawal: No Advance Directives: No Advance Directives Information Provided: No Do you have thoughts of harming others: None Do you have a plan to hurt others: No Plan Recently lost weight without trying: Unsure Poor oral hygiene: No Current occupational status: disabled Meds Allergies Allergy/AdvReac Type Severity Reaction Status Date / Time No Known Allergies Allergy Unverified 07/31/21 18:32 Active Medications: Current Medications Acetaminophen (Acetaminophen 325 Mg Tablet) 650 mg PO Q6H PRN PRN Reason: Pain, Mild (Pain Scale 1-3) Amlodipine Besylate (Amlodipine Besylate 5 Mg Tablet) 5 mg PO DAILY [facility]; Protocol Last Admin: 08/01/21 12:40 Dose: 5 mg Documented by: Apixaban (Apixaban 5 Mg Tablet) 5 mg PO BID [facility] Last Admin: 08/01/21 12:40 Dose: 5 mg Documented by: Atorvastatin Calcium (Atorvastatin Calcium 20 Mg Tablet) 20 mg PO DAILY [facility] Last Admin: 08/01/21 12:40 Dose: 20 mg Documented by: Clotrimazole (Clotrimazole 1 % Cream 15 Gm Tube) 1 appl TOPICAL BID [facility] Last Admin: 08/01/21 12:40 Dose: 1 appl Documented by: Docusate Sodium (Docusate Sodium 100 Mg Capsule) 100 mg PO DAILY PRN PRN Reason: Constipation Donepezil HCl (Donepezil Hcl 5 Mg Tablet) 5 mg PO DAILY [facility] Last Admin: 08/01/21 12:40 Dose: 5 mg Documented by: Hydroxyzine HCl (Hydroxyzine Hcl 50 Mg Tablet) 50 mg PO BEDTIME PRN PRN Reason: insomnia Latanoprost (Latanoprost 0.005 % Ophth Lulu 2.5 Ml Drops) 1 drop EYE-BOTH BEDTIME [facility] Levothyroxine Sodium (Levothyroxine Sodium 100 Mcg Tablet) 100 mcg PO DAILY@0600 [facility] Last Admin: 08/01/21 06:19 Dose: Not Given Documented by: Ondansetron HCl (Ondansetron Hcl 4 Mg/2 Ml Vial) 4 mg IVPUSH Q8H PRN PRN Reason: Nausea and Vomiting Triamcinolone Acetonide (Triamcinolone Acet 0.025 % Cream 15 Gm Tube) 1 appl TOPICAL DAILY [facility] Last Admin: 08/01/21 12:40 Dose: 1 appl Documented by: Home Medications Medication Instructions Recorded Confirmed Last Taken Type amlodipine 5 mg tablet 1 tab PO DAILY 07/31/21 07/31/21 Unknown History apixaban 5 mg tablet (Eliquis) 1 tab PO BID 07/31/21 07/31/21 Unknown History atorvastatin 20 mg tablet 1 tab PO DAILY 07/31/21 07/31/21 Unknown History desonide 0.05 % topical cream 1 appl TOPICAL DAILY 07/31/21 07/31/21 Unknown History donepezil 5 mg tablet 1 tab PO DAILY 07/31/21 07/31/21 Unknown History hydroxyzine HCl 25 mg tablet 2 tab PO BEDTIME PRN 07/31/21 07/31/21 Unknown History ketoconazole 2 % topical cream 1 appl TOPICAL BID 07/31/21 07/31/21 Unknown History levothyroxine 100 mcg tablet 1 tab PO DAILY 07/31/21 07/31/21 Unknown History travoprost 0.004 % eye drops 1 drp OPHTHALMIC (EYE) QPM 07/31/21 07/31/21 Unknown History Physical Exam Vital Signs: Vital Signs: Last Vital Signs Temp 96.8 F 08/01/21 11:14 Pulse 80 08/01/21 12:40 Resp 20 08/01/21 11:14 BP 143/83 H 08/01/21 12:40 Pulse Ox 93 08/01/21 11:14 Body Mass Index 42.3 Const: Other: No acute distress. Alert and oriented General: cooperative and no acute distress HENMT: Other: Normocephalic atraumatic Eyes: Other: Extraocular muscles intact General: appearance normal, both eyes and all related structures Pupils: Equal, round and reactive pupils present Resp: Other: Clear and equal bilaterally Effort & Inspection: normal respiratory effort Auscultation: clear to auscultation bilaterally Cardio: Other: Irregularly irregular with a rate in the 50s. No obvious murmurs rubs or gallops Rate: regular rate Rhythm: regular rhythm GI: Other: Nontender Palpation (GI): Soft to palpation Auscultation: normal bowel sounds Skin: Other: Warm pink and dry General skin exam: no rashes or lesions noted Neuro: Other: He is alert pleasant and cooperative. He has a flat look. He has dysarthria. he is oriented to person, place and month and year not to day and date. He has a left facial droop with left lower facial weakness. He has left hemiparesis upper extremity 4 to 4+/5 lower extremity 5-/5 with a reflexia. Plantar responses flexor on the right and extensor on the left. Rapid alternating movements are slow. There is no sensory deficit. Cranial nerves: Yes Equal, round and reactive pupils present Cognition (Neuro): normal cognition Extrem: General: Yes normal to inspection and Yes no pedal edema Results Labs CBC & Chem 7: 08/01/21 07:02 08/01/21 07:02 Labs: Short CBC 07/31/21 08/01/21 Range/Units 20:10 07:02 WBC 9.3 8.7 (4.8-10.8) X10*3/uL Hgb 15.4 15.6 (14.0-18.0) g/dl Hct 41.8 L 43.3 (42-52) % Plt Count 237 252 (160-400) X10*3/uL BMP 07/31/21 08/01/21 20:10 07:02 Sodium 133 L 131 L Potassium 4.0 4.1 Chloride 97 95 L Carbon Dioxide 26 26 BUN 12 12 Creatinine 0.85 0.83 Calcium 9.5 9.1 Liver Function 07/31/21 Range/Units 20:10 Total Bilirubin 1.0 (0.0-1.0) mg/dL AST 16 (5-37) U/L ALT 19 (0-40) U/L Alkaline Phosphatase 86 (39-117) U/L Albumin 4.6 (3.5-5.0) g/dL Assessment and Plan (1) CVA (cerebral vascular accident): Status: Acute Subacute right frontoparietal stroke probably 10-14 days ago. Likely etiology is his atrial fibrillation. He is on Eliquis which she has been taking regularly. Rule out carotid disease. Status post craniotomy 20 years ago for right inferior lobe low-grade astrocytoma Recommend MRI of the brain to evaluate the extent of the stroke. I would also do the MRI with gadolinium as follow-up of his brain tumor. He should be started on PT OT and speech therapy. Carotid Doppler. Continue Eliquis, add aspirin 81 mg Procedures Date of Service Date of Service: 08/01/21
--- NOTE | 2021-08-01 14:18 | MHC.CM.PN ---
Acute rehab referrals placed w/requests for follow. CM to follow.
[2021-08-01 14:48] LABS: Appearance Urine CLEAR; Color Urine YELLOW; Glucose Urine UA NEG (NEG); Leukocyte Esterase Urine NEG (NEG); Nitrite Urine NEG (NEG); PH 6.5 (5.0-8.0); UACC Culture Trigger NO; Urine Blood 3+ (NEG); Urine Ketones NEG (NEG); Urine Protein 1+ MG/DL (NEG-TRACE)
[2021-08-01 14:58] LABS: Bacteria Urine TRACE /LPF; WBC Urine 0 /HPF (0-4)
[2021-08-01 14:59] LABS: Amorphous Sediment Urine 1+ /LPF
--- NOTE | 2021-08-01 18:50 | PC.NURSE ---
Patient OOB to recliner for majority of the day. Seen by speech, diet entered per recommendation, aspiration precautions in place. Patient had incontinent urine episode and moderate liquid BM in bathroom. Ambulates with 2 assist and cane due to moderate left sided weakness. No other remarkable events, will pass to oncoming RN.
[2021-08-01] MEDS: Latanoprost 0.005 % Ophth Sol 2.5 ML DROPS 1 DROP EYE-BOTH (20:21)
[2021-08-02] VITALS (11 sets, daily range): BP systolic 130–165; BP diastolic 74–93; PULSE 63–104; RESP 18; TEMP 36.3–36.6; O2SAT 93–97
[2021-08-02] MEDS: hydrOXYzine HCL 50 MG TABLET PO ×2 (00:46→21:31)
[2021-08-02] MEDS: Levothyroxine Sodium 100 MCG TABLET PO (05:32)
[2021-08-02 06:52] LABS: Anion Gap 14 (12-20); Blood Urea Nitrogen 13 mg/dL (9-16); Calcium 9.2 mg/dL (8.4-10.2); Carbon Dioxide 24 mmol/L (22-29); Chloride 95 mmol/L (96-108); Creatinine Clr Calc Pharmacy 105.7; Estimated Glomerular Filt Rate > 60; Glucose Random 110 mg/dL (60-115); Potassium 4.4 mmol/L (3.3-5.1); Sodium 129 mmol/L (135-145)
[2021-08-02 07:16] LABS: Thyroid Stimulating Hormone 3.26 uIU/mL (0.32-4.0)
[2021-08-02] MEDS: Apixaban 5 MG TABLET PO ×2 (08:49→21:26)
[2021-08-02] MEDS: Donepezil HCl 5 MG TABLET PO (08:49)
[2021-08-02] MEDS: amLODIPine Besylate 5 MG TABLET PO (08:49)
[2021-08-02] MEDS: Atorvastatin Calcium 20 MG TABLET PO (08:49)
[2021-08-02] MEDS: Aspirin Enteric Coated 81 MG TABLET.DR PO (08:49)
[2021-08-02] MEDS: Clotrimazole 1 % Cream 15 GM TUBE 1 APPL TOPICAL ×2 (08:51→21:28)
[2021-08-02 09:09] LABS: Osmolality, Serum 272 mosm/kg (281-305)
--- NOTE | 2021-08-02 11:53 | MHC.SLORD ---
Speech Language Pathology Order Status: Patient was away for MRI this morning. COURIER DRIVER to return this afternoon for PO trials.
[2021-08-02] MEDS: 0.9 % Sodium Chloride 1,000 ML 100 ML IVCONT (13:13)
[2021-08-02] MEDS: Triamcinolone Acet 0.025 % Cream 15 GM TUBE 1 APPL TOPICAL (13:16)
--- NOTE | 2021-08-02 13:23 | HO.PM.IMPN ---
Subjective Subjective Date of Service: 08/02/21 Interval History: Patient being followed for left-sided weakness, slurred speech and left facial droop, patient complaining of persistent left upper extremity weakness, no new neurological deficit overnight, denies headache, no dizziness, no other acute issues overnight. Review of Systems General no headache, no dizziness no fever chills.? CVS no chest pain, no palpitation.? Respiratory no cough ,no sob.? Gastrointestinal no nausea no vomiting, no abdominal pain Review of Systems: Yes all other systems are reviewed and are negative Physical Exam Vital Signs: Vital Signs: Last Vital Signs Temp 97.5 F 08/02/21 12:00 Pulse 78 08/02/21 12:00 Resp 18 08/02/21 12:00 BP 140/91 H 08/02/21 12:00 Pulse Ox 97 08/02/21 12:00 Body Mass Index 42.3 General alert orie nted x3, no acute distress.? Neck moore pple no JVD. CVS? irregular rate rhy thm, Respiratory l ungs clear to ausc ultation, no respi ratory distress, n o wheeze, no rhonc hi. Gastrointestin al abdomen soft, n ontender, bowel so unds audible, no g uarding , no rigid ity. Extremities n o edema. Neuro lef t upper extremity weakness, mild lef t facial droop, no rmal strength bila teral lower extrem ity No change in n euro examination. Skin no rash Objective Data Active Medications Acetaminophen (Acetaminophen 325 Mg Tablet) 650 mg PO Q6H PRN PRN Reason: Pain, Mild (Pain Scale 1-3) Amlodipine Besylate (Amlodipine Besylate 5 Mg Tablet) 5 mg PO DAILY [facility]; Protocol Last Admin: 08/02/21 08:49 Dose: 5 mg Documented by: KATHY Apixaban (Apixaban 5 Mg Tablet) 5 mg PO BID [facility] Last Admin: 08/02/21 08:49 Dose: 5 mg Documented by: KATHY Aspirin (Aspirin Enteric Coated 81 Mg Tablet.) 81 mg PO DAILY [facility] Last Admin: 08/02/21 08:49 Dose: 81 mg Documented by: KATHY Atorvastatin Calcium (Atorvastatin Calcium 20 Mg Tablet) 20 mg PO DAILY [facility] Last Admin: 08/02/21 08:49 Dose: 20 mg Documented by: KATHY Clotrimazole (Clotrimazole 1 % Cream 15 Gm Tube) 1 appl TOPICAL BID [facility] Last Admin: 08/02/21 08:51 Dose: 1 appl Documented by: KATHY Docusate Sodium (Docusate Sodium 100 Mg Capsule) 100 mg PO DAILY PRN PRN Reason: Constipation Donepezil HCl (Donepezil Hcl 5 Mg Tablet) 5 mg PO DAILY [facility] Last Admin: 08/02/21 08:49 Dose: 5 mg Documented by: KATHY Hydroxyzine HCl (Hydroxyzine Hcl 50 Mg Tablet) 50 mg PO BEDTIME PRN PRN Reason: insomnia Last Admin: 08/02/21 00:46 Dose: 50 mg Documented by: NATHAN Sodium Chloride (Ns) 1,000 mls @ 100 mls/hr IVCONT .Q10H [facility] Stop: 08/02/21 20:59 Last Admin: 08/02/21 13:13 Dose: 100 mls/hr Documented by: KATHY Latanoprost (Latanoprost 0.005 % Ophth Lulu 2.5 Ml Drops) 1 drop EYE-BOTH BEDTIME [facility] Last Admin: 08/01/21 20:21 Dose: 1 drop Documented by: UNIQUE Levothyroxine Sodium (Levothyroxine Sodium 100 Mcg Tablet) 100 mcg PO DAILY@0600 [facility] Last Admin: 08/02/21 05:32 Dose: 100 mcg Documented by: NATHAN Ondansetron HCl (Ondansetron Hcl 4 Mg/2 Ml Vial) 4 mg IVPUSH Q8H PRN PRN Reason: Nausea and Vomiting Triamcinolone Acetonide (Triamcinolone Acet 0.025 % Cream 15 Gm Tube) 1 appl TOPICAL DAILY [facility] Last Admin: 08/02/21 13:16 Dose: 1 appl Documented by: KATHY Labs CBC & Chem 7: 08/01/21 07:02 08/02/21 06:02 Labs: Laboratory Results - last 24 hr 08/01/21 08/02/21 08/02/21 14:30 06:02 06:02 Anion Gap 14 Estim Creat Clear Calc 105.7 Estimated GFR > 60 Random Glucose 110 Osmolality 272 L Calcium 9.2 TSH 3.26 Urine Color YELLOW Urine Appearance CLEAR Urine pH 6.5 Ur Specific [place] 1.020 Urine Protein 1+ H Urine Glucose (UA) NEG Urine Ketones NEG Urine Blood 3+ H Urine Nitrite NEG Ur Leukocyte Esterase NEG Urine RBC 15-29 H Urine WBC 0 Ur Squamous Epith Cells NONE Amorphous Sediment 1+ Urine Bacteria TRACE Assessment and Plan (1) Acute CVA (cerebrovascular accident): Status: Acute Assessment and Plan: 66-year-old male with past medical history of hypertension, hypothyroidism, hyperlipidemia presents to the hospital with left-sided weakness being admitted for evaluation of CVA # acute CVA - persistent left upper extremity weakness, left facial droop, CT head showed no acute CVA MRI brain showed small acute infarct within the right aviles radiata, no mass or tumor noted, carotid ultrasound showed no significant stenosis question CVA due to atrial fibrillation ? patient did not meet criteria for tPA ? Reviewed labs it showed LDL 91, total cholesterol 151 ? Continue statin, Eliquis and added aspirin as per neuro recommendation ? Patient seen by speech therapy they recommend regular solids and honey thing liquids with pills whole in puree and strict aspiration precautions ? PT recommend acute rehab # moderate-sized left mastoid effusion, patient with no sinus pressure or earache,outpatient ENT follow up. # hypertension - borderline high, continue Norvasc 5 mg daily and follow BP closely # hyperlipidemia - continue statin # AFib - continue eliquis, stable ventricular rate # hypothyroidism - continue levothyroxine, check TSH # morbid obesity will recommend low-calorie diet, obesity likely contributing to hypertension hyperlipidemia and stroke. # mild hyponatremia sodium dropped from 131 to 129 low serum osmolality will treat with normal saline and restrict fluid follow BMP at a.m. DVT prophylaxis:? Eliquis Quality Stroke Does the patient have a stroke diagnosis?: No VTE Prior VTE?: No VTE Risk Level:: Medical - moderate - high VTE Device Contraindication: Treatment Not Indicated VTE Drug Contraindication: N/A - Med Ordered
--- NOTE | 2021-08-02 15:23 | MHC.STROKE ---
07/31/21 1733 EMS PRE-NOTIFIED WEAKNESS AND SPEECH ISSUES FOR 10 DAYS. ARRIVED 1750, EXAMINED AND WENT TO CT AT 1844. NO BLEED, OUT OF THE WINDOW FOR TPA, NIHSS = 5 FOR FACE, LA, LL, AND DYSARTRIA. TODAY HIS MRI CONFIRMED A RIGHT LESTER RADIA ISCHEMIC STROKE WHICH CORRELATES WITH THESE SYMPTOMS. THE PATIENT DID RELAY THAT HE HAS BEEN INCONSISTENT IN TAKING THE ELIQUIS TWICE A DAY. I REVIEWED THE MRI, I GAVE HIM A SCREEN SHOT OF THE MRI, I DESCRIBED THE LOCATION AND CORRELATING SYMPTOMS. WE DISCUSSED MEDICATION COMPLIANCE, REHAB RECOMMENDATIONS. I REVIEWED THE STROKE EDUCATION BOOKLET, THE POWER POINT SLIDES AND ANSWERED ALL OF HIS QUESTIONS.
--- NOTE | 2021-08-02 15:37 | MHC.SL.SWA ---
Speech Pathologist Impression: Risk of Aspiration Oralpharyngeal Dysphagia Risk of Aspiration Due to: Neurological Condition Dysphasia Diet Status: No Change Liquid Consistency and Strategies for Safe Swallow: Liquid Intake Recommendation: Honey Thick Liquid Intake Strategies: Small Sips No Straws Solid Food Consistency: Dietary Recommendations: Regular Additional Modifications to Solid Foods: Patient presents with left facial droop and slurred speech. Overt s/s of aspiration on cup sip of thin and nectar thick liquids. Patient appears to be on appropriate diet textures REGULAR solids/ HONEY THICK liquids. Recommend assistance with tray set up, supervision, and aspiration precautions. Pills whole in puree. CYCLE COUNTER will continue to follow. Oral Medication Intake: Whole with Puree Compensatory Strategies and Precautions to be Taken for Safe Swallow: Sitting Upright (90 deg) No Straw Small Bites and Sips Alternate Liquids/Solids Rate of Ingestion Change Avoid Specific Foods Supervision While Eating and Drinking for Safe Swallow: Total Supervision (1:1) Foods to Avoid: Avoid tough and sticky foods Swallowing Recommended Treatments: Compens. Strategy Educat. Recommendation for Speech: Inpatient Speech Therapy Comment: CYCLE COUNTER will continue to follow. Durable Medical Equipment Repairer Clinican/Clinical Fellow: No Supervisory Statement: I have reviewed and agree with the student/clinical fellow's documentation: N/A Speech Language Pathologist: Leatha Banks M.A., CCC-CYCLE COUNTER
[2021-08-02] MEDS: Latanoprost 0.005 % Ophth Sol 2.5 ML DROPS 1 DROP EYE-BOTH (21:26)
[2021-08-03 04:00] VITALS: BP 140/99; PULSE 76; RESP 18; TEMP 36.4; O2SAT 97
[2021-08-03] MEDS: Acetaminophen 325 MG TABLET 650 MG PO (04:58)
[2021-08-03] MEDS: Levothyroxine Sodium 100 MCG TABLET PO (05:01)
[2021-08-03 07:25] LABS: Anion Gap 12 (12-20); Blood Urea Nitrogen 15 mg/dL (9-16); Carbon Dioxide 25 mmol/L (22-29); Chloride 97 mmol/L (96-108); Creatinine Clr Calc Pharmacy 108.2; Estimated Glomerular Filt Rate > 60; Glucose Random 106 mg/dL (60-115); Potassium 4.4 mmol/L (3.3-5.1); Sodium 130 mmol/L (135-145)
[2021-08-03 07:32] VITALS: BP 146/95; PULSE 70; RESP 18; O2SAT 96
[2021-08-03] MEDS: Donepezil HCl 5 MG TABLET PO (09:01)
[2021-08-03] MEDS: amLODIPine Besylate 5 MG TABLET PO (09:01)
[2021-08-03] MEDS: Atorvastatin Calcium 20 MG TABLET PO (09:01)
[2021-08-03] MEDS: Aspirin Enteric Coated 81 MG TABLET.DR PO (09:01)
[2021-08-03] MEDS: Apixaban 5 MG TABLET PO (09:01)
[2021-08-03] MEDS: Clotrimazole 1 % Cream 15 GM TUBE 1 APPL TOPICAL (09:03)
[2021-08-03] MEDS: Triamcinolone Acet 0.025 % Cream 15 GM TUBE 1 APPL TOPICAL (09:03)
[2021-08-03 09:27] VITALS: BP 146/95; PULSE 70; O2SAT 96
--- NOTE | 2021-08-03 10:48 | PM.DS ---
DS: Providers Provider Date of Service: 08/03/21 Date of admission: 07/31/21 23:18 Primary care physician: Dorys Hay NP Consults: 07/31/21 22:23 Consult to Neurology Routine Consulting Provider: [facility] Reason for consultation: STroke vs TIA Has provider been notified: No DS: Diagnosis Discharge Diagnosis (1) Acute CVA (cerebrovascular accident): Status: Acute DS: Summary Hospital Course Hospital Course: Chief Complaint: left arm weakness 66-year-old male with past medical history of HTN, AFib on Eliquis, hyperlipidemia, hypothyroidism who presents the hospital with complaints of left-sided arm weakness.? Patient reports that this occurred about a week ago, his also noticed slurred speech and droopiness of the face, when asked the patient he denied left leg weakness but apparently his reported left leg weakness with difficulty ambulating. Patient denies any chest pain, no shortness of breath, no cough, he denies any headache, no change in vision, no abdominal pain nausea vomiting, diarrhea constipation, no urinary symptoms and no lower extremity edema.? All other review of systems negative except as mentioned On arrival to the ED patient hemodynamically stable with no significant abnormal vitals Labs are significant for WBC count of 9.3, PT of 13.5, INR of 1.2, sodium of 133, otherwise unremarkable. Of an acute major vascular territory infarction, there is encephalomalacia of the inferior right frontal lobe deep to the site of prior craniotomy, old lacunar infarcts in the gangliacapsular region and chronic small vessel ischemic changes of the supratentorial white matter Hospital course 66-year-old male with past medical history of hypertension, hypothyroidism, hyperlipidemia presents to the hospital with left-sided weakness being admitted for evaluation of CVA, patient diagnosed to have acute CVA Initial CT head on admission showed no acute CVA,MRI brain showed?small acute infarct within the right aviles radiata, no mass or tumor noted, carotid ultrasound showed no significant stenosis question CVA due to atrial fibrillation Patient has been continued on Eliquis, statin and has been started on aspirin, LDL is stable at 91 with a total cholesterol of 151 Patient seen by Neurology he did not qualify for tPA due to duration of symptoms Patient seen by speech therapy they recommend regular solids and honey thick liquids with pills whole in puree and strict aspiration precautions PT recommend acute rehab # mild hyponatremia likely due to excessive free water intake, restrict 1.5 L/24h and follow BMP in 1 week # moderate-sized left mastoid effusion, patient with no sinus pressure or earache,outpatient ENT follow up recommended # hypertension continue Norvasc # AFib - continue eliquis, stable ventricular rate # hypothyroidism - continue levothyroxine, check TSH # morbid obesity recommended low-calorie diet, obesity likely contributing to hypertension hyperlipidemia and stroke. Time Spent with Patient Time attestation: Total time spent providing and/or coordinating discharge services: Discharge coordination time: Greater than 30 minutes Quality: Stroke Does the patient have a stroke diagnosis?: Yes Reason for No Anti-thrombotic at DC: N/A - Med Ordered Reason for No Anticoagulant at DC: N/A - Med Ordered Reason Not Initiating IV-Tpa: Drug treatment not indicated Reason for No Anti-thrombotic by Day Two: N/A - Med Ordered Reason for No Statin at DC: N/A - Med Ordered Physical Exam Vital Signs: Vital Signs: Last Vital Signs Temp 97.6 F 08/03/21 04:00 Pulse 70 08/03/21 09:27 Resp 18 08/03/21 07:32 BP 146/95 H 08/03/21 09:27 Pulse Ox 96 08/03/21 09:27 Body Mass Index 42.3 General alert oriented x3, no acutedistress.? Neck supple no JVD. CVS?irregular rate rhythm, Respiratory lungs clear to auscultation, no respiratory distress, no wheeze, no rhonchi. Gastrointestinal abdomen soft, nontender, bowel sounds audible, no guarding , no rigidity. Extremities no edema. Neuro left upper extremity weakness, decreased left hand glove boarder, mild left facial droop, normal strength bilateral lower extremity,No change in neuro examination since admission Skin no rash DS: Data Data Completed and Pending Labs on day of discharge: Laboratory Results - last 24 hr 08/03/21 05:39 Sodium 130 L Potassium 4.4 Chloride 97 Carbon Dioxide 25 Anion Gap 12 BUN 15 Creatinine 0.83 Estim Creat Clear Calc 108.2 Estimated GFR > 60 Random Glucose 106 Calcium 9.0 Discharge Plan Discharge Patient Disposition: Xfer Inpatient Rehab Fac Discharge Diagnosis: acute cva Referrals: Dorys Hay NP [Primary Care Provider] - 1 Week Discharge Medications: New aspirin 81 mg Tablet,Delayed Release (Dr/Ec) 81 mg PO DAILY Qty: 30 RF: 0 Continued desonide 0.05 % cream 1 appl topical DAILY RF: 0 atorvastatin 20 mg tablet 1 tab PO DAILY RF: 0 donepezil 5 mg tablet 1 tab PO DAILY RF: 0 travoprost 0.004 % drops 1 drp ophthalmic (eye) QPM RF: 0 amlodipine 5 mg tablet 1 tab PO DAILY RF: 0 levothyroxine 100 mcg tablet 1 tab PO DAILY RF: 0 hydroxyzine HCl 25 mg tablet 2 tab PO BEDTIME PRN (Reason: insomnia) RF: 0 ketoconazole 2 % cream 1 appl topical BID RF: 0 Eliquis 5 mg tablet 1 tab PO BID RF: 0 Discharge Orders: Discharge Order (Routine); Ordered 08/03/21 Ordered By: Gloria Villa Diet: low fat, low cholesterol Activity on Discharge: As tolerated Stand Alone Forms: Patient Portal Discharge page Care Plan Goals: Acute CVA continue physical therapy, occupational therapy and speech therapy Mild hyponatremia due to excessive water intake, restrict fluids to 1500 per day, follow BMP in 1 week Health Concerns: hyperlipidemia, atrial fibrillation, hypertension, moderate size left mastoid effusion outpatient ENT follow-up Plan of Treatment: Outpatient follow-up with primary care physician in 1-2 weeks Assessment: as above
[2021-08-03 11:09] LABS: COVID-19 Test Negative (Negative)
[2021-08-03 11:22] VITALS: BP 123/79; PULSE 57; RESP 18; O2SAT 94
--- NOTE | 2021-08-03 11:56 | MHC.CM.PN ---
IMM 08/03/21 Male DX CVA is discharged today to [facility]. He will transport via BLS @ 2pm today. All discharge information and covid test have been sent to the facility via [employer]
--- NOTE | 2021-08-03 12:37 | MHC.SL.SWA ---
Speech Pathologist Impression: Risk of Aspiration Oralpharyngeal Dysphagia Risk of Aspiration Due to: Neurological Condition Dysphasia Diet Status: Upgrade Liquid Consistency and Strategies for Safe Swallow: Liquid Intake Recommendation: [facility] Thick Liquid Intake Strategies: Small Sips No Straws Solid Food Consistency: Dietary Recommendations: Regular Additional Modifications to Solid Foods: Recommend REGULAR solids and NECTAR THICK liquids with pills WHOLE in PUREE. Patient is able to feed himself, but is recommended assistance with tray set up and supervision to ensure tolerance and aspiration precautions. Recommend strict aspiration precautions. Oral Medication Intake: Whole with Puree Compensatory Strategies and Precautions to be Taken for Safe Swallow: Sitting Upright (90 deg) No Straw Small Bites and Sips Alternate Liquids/Solids Rate of Ingestion Change Avoid Specific Foods Supervision While Eating and Drinking for Safe Swallow: Total Supervision (1:1) Foods to Avoid: Avoid tough and sticky foods Swallowing Recommended Treatments: Compens. Strategy Educat. Recommendation for Speech: Inpatient Speech Therapy RN, RD, and MD notified of upgrade. Diet order changed by [employer] [facility]. Lining Stuffer Clinican/Clinical Fellow: No Supervisory Statement: I have reviewed and agree with the student/clinical fellow's documentation: N/A Speech Language Pathologist: Leatha Banks M.A., [facility]
== END 2021-08-03 14:29 | DRG 65 ==
LOC: HO.ED 20:51 → HO.EDOVER 23:50 → HO.IMC 08-01 05:41
PROVIDERS: Admitting Provider Internal Medicine; Emergency Provider Emergency Medicine; PCP Nurse Practitioner; Visit Provider Hospitalist
DX: I63.9 Cerebral infarction, unspecified (principal); G81.94 Hemiplegia, unspecified affecting left nondominant side; Z68.41 Body mass index [BMI] 40.0-44.9, adult; E87.1 Hypo-osmolality and hyponatremia; E03.9 Hypothyroidism, unspecified; E78.5 Hyperlipidemia, unspecified; R29.705 NIHSS score 5; I10 Essential (primary) hypertension; E66.01 Morbid (severe) obesity due to excess calories; F03.90 Unspecified dementia, unspecified severity, without behavioral disturbance, psychotic disturbance, mood disturbance, and anxiety; R47.81 Slurred speech; I48.91 Unspecified atrial fibrillation; Z20.822 Contact with and (suspected) exposure to COVID-19; Z79.82 Long term (current) use of aspirin; Z79.01 Long term (current) use of anticoagulants; Z79.890 Hormone replacement therapy; Z79.899 Other long term (current) drug therapy
CPT/HCPCS: 36415; 70450; 70553; 71046; 80048; 80053; 80061; 81001; 83930; 84443; 85025; 85610; 87635; 92610; 93005; 93880; 97110; 97116; 97161; 97165; 97535; 99285; A9585